=== PATIENT | male | born 1940 | race Hispanic/Latino ===

== ENCOUNTER 2018-11-12 12:07 | Inpatient (IN) | payer MEDICARE ==
[2018-11-12] MEDS ORDERED: WATER FOR INJ Sterile (PF) 10 ML ONE (19:06)
[2018-11-12] MEDS: GEODON IM SCH (19:23)
[2018-11-12] MEDS: DESYREL PO SCH (21:37)
[2018-11-13] MEDS: GEODON IM SCH (03:12)
--- NOTE | 2018-11-13 08:06 | History and Physical Report ---
GP History & Physical - History of Present Illness Date of admission: 11/12/18 Date of Examination: 11/13/18 Reason for Admission: Danger to others, Unable to care for self Chief Complaint: Aggressive behavior History of Present Illness: The patient is a 78yo male with history of Dementia, CVD and MD. He resides at an [facility], referred from [facility] with history of being aggressive towards staffs - physically and verbally. He received Haldol at the ED due to his aggressive behavior. Patient seen this morning in the dayroom, eating his breakfast. He does not know why he is here. Reports feeling good, denies SI/HI/AVH Past History Past Medical History: other (hypertension, hyperlipidemia, coronary artery disease, A. fib, dementia) Past Surgical History: Other (unknown) Social history: other (unknown) Family history: other (unknown) Medications and Allergies Allergies Allergy/AdvReac Type Severity Reaction Status Date / Time amlodipine Allergy Unknown Unknown Verified 11/12/18 15:59 Home Medications Medication Instructions Recorded Confirmed Last Taken Type Aricept 10 mg PO DAILY 11/13/18 11/13/18 Unknown History Atorvastatin 40 mg PO DAILY 11/13/18 11/13/18 Unknown History Calcium Carbonate 400MG CHEW 500 mg PO DAILY 11/13/18 11/13/18 Unknown History Carvedilol [Coreg] 3.125 mg PO BID 11/13/18 11/13/18 Unknown History Cholecalciferol (Vitamin D3) 2,000 unit PO DAILY 11/13/18 11/13/18 Unknown History Digoxin 0.125 mg PO Q48HR 11/13/18 11/13/18 Unknown History Eliquis 5 mg PO BID 11/13/18 11/13/18 Unknown History LORazepam 1 mg PO TID PRN 11/13/18 11/13/18 Unknown History Lexapro 5 mg PO DAILY 11/13/18 11/13/18 Unknown History Namenda 10 mg PO DAILY 11/13/18 11/13/18 Unknown History QUEtiapine [SEROquel] 25 mg PO QHS 11/13/18 11/13/18 Unknown History Ubidecarenone [Coenzyme Q10] 200 mg PO DAILY 11/13/18 11/13/18 Unknown History hydrALAZINE 25 mg PO TID 11/13/18 11/13/18 Unknown History Legal Status: Voluntary Patient Problems: Current Active Problems Dementia, Alzheimer's, with behavior disturbance (Acute) Review of Systems ROS unobtainable: due to mental status Results - Results Labs/Vitals: Last Vital Signs Temp 99.3 F 11/12/18 22:00 Pulse 89 11/12/18 22:00 Resp 18 11/12/18 22:00 BP 132/85 11/12/18 22:00 Pulse Ox 94 11/12/18 22:00 Physical Examination - Constitutional Vitals: Vital Signs Temp Pulse Resp BP Pulse Ox 99.3 F 89 18 132/85 94 11/12/18 22:00 11/12/18 22:00 11/12/18 22:00 11/12/18 22:00 11/12/18 22:00 Temperature -Last 24 Hours Temperature 99.3 F Temperature 99.3 F Temperature 98.3 F General appearance: Present: no acute distress - EENT Eyes: Present: PERRL, EOM intact ENT: hearing intact, clear oral mucosa - Neck Neck: Present: supple, normal ROM - Respiratory Respiratory effort: normal Mental Status Exam - Vital signs Last Vital Signs Temp 99.3 F 11/12/18 22:00 Pulse 89 11/12/18 22:00 Resp 18 11/12/18 22:00 BP 132/85 11/12/18 22:00 Pulse Ox 94 11/12/18 22:00 - Exam Orientation: person Affect: anxious Mood: congruent with affect Thought Process: Disorganized Perceptions: none Speech: normal rate and pattern Concentration: distractible Motor activity: normal Level of consciousness: confused Memory: Recent Impaired, Remote Impaired Interaction: uncooperative Assessment and Plan - Psychiatric problem (1) Dementia, Alzheimer's, with behavior disturbance Current Visit: Yes Status: Acute plan to address problem: Patient will be admitted for inpatient psychiatric evaluation, medication adjustment and close monitoring The patient's behavior, mood, sleep and appetite will be closely monitored. Patient will be enrolled in individual and group therapeutic sessions and encouraged to attend. Patient will be provided with a safe and structured environment. Patient's physical health needs will be addressed by the Hospitalist. Social Assessment will be completed and the Fiber Optic Assembly Worker will work with patient and family to ensure a suitable and safe disposition Medication adjustment will be made as clinically indicated Physician Certification - Certification Statement Physician Certification Statement: This is an acknowledgement statement that ROSA MERINO is a 78 year old M w ho requires inpatient psychiatric admission for treatment which could reasonably be expected to improve the patient's condition for aggression and behavioral disturbance Estimated period of time patient will need to remain in the hospital: 7 days Plan for post-hospital care: out-patient care
[2018-11-13] MEDS ORDERED: NON-FORMULARY (Lorazepam 1 MG) PO PRN (08:14)
[2018-11-13] MEDS ORDERED: LEXAPRO 5 MG PO SCH (10:00)
[2018-11-13] MEDS ORDERED: NAMENDA 10 MG PO SCH (10:00)
[2018-11-13] MEDS ORDERED: ARICEPT 10 MG PO SCH (10:00)
[2018-11-13 10:48] LABS: Basophils # (Auto) 0.1 K/mm3 (0.0-0.1); Basophils % (Auto) 0.8 % (0.0-1.8); Eosinophils # (Auto) 0.2 K/mm3 (0.0-0.4); Eosinophils % (Auto) 1.9 % (0.0-4.3); Hematocrit 41.1 % (35.5-45.6); Hemoglobin 13.6 gm/dl (11.8-15.2); Lymphocytes # (Auto) 0.8 K/mm3 (1.2-5.4); Lymphocytes % (Auto) 10.3 % (13.4-35.0); Mean Corpuscular HGB Conc 33 % (32-34); Mean Corpuscular Hemoglobin 30 pg (28-32); Mean Corpuscular Volume 90 fl (84-94); Monocytes # (Auto) 0.9 K/mm3 (0.0-0.8); Monocytes % (Auto) 11.7 % (0.0-7.3); Platelet Count 148 K/mm3 (140-440); Red Blood Count 4.58 M/mm3 (3.65-5.03); Red Cell Distribution Width 15.8 % (13.2-15.2)
[2018-11-13 10:58] LABS: Calcium 9.6 mg/dL (8.4-10.2); Chol/HDL Ratio 1.94 %
[2018-11-13] MEDS: ATIVAN PO PRN (11:06)
[2018-11-13] MEDS: ARICEPT PO SCH (11:07)
[2018-11-13] MEDS: LEXAPRO PO SCH (11:09)
[2018-11-13] MEDS: NAMENDA PO SCH (11:10)
--- NOTE | 2018-11-13 15:25 | Consultation ---
History of Present Illness - History of Present Illness 78-year-old man with multiple medical problems who was brought to the [facility] inpatient unit for management of aggressive behavior. Medicine consulted for medical management Past History Past Medical History: other (hypertension, hyperlipidemia, coronary artery disease, A. fib, dementia) Past Surgical History: Other (unknown) Social history: other (unknown) Family history: other (unknown) Medications and Allergies Allergies Allergy/AdvReac Type Severity Reaction Status Date / Time amlodipine Allergy Unknown Unknown Verified 11/12/18 15:59 Home Medications Medication Instructions Recorded Confirmed Last Taken Type Aricept 10 mg PO DAILY 11/13/18 11/13/18 Unknown History Atorvastatin 40 mg PO DAILY 11/13/18 11/13/18 Unknown History Calcium Carbonate 400MG CHEW 500 mg PO DAILY 11/13/18 11/13/18 Unknown History Carvedilol [Coreg] 3.125 mg PO BID 11/13/18 11/13/18 Unknown History Cholecalciferol (Vitamin D3) 2,000 unit PO DAILY 11/13/18 11/13/18 Unknown History Digoxin 0.125 mg PO Q48HR 11/13/18 11/13/18 Unknown History Eliquis 5 mg PO BID 11/13/18 11/13/18 Unknown History LORazepam 1 mg PO TID PRN 11/13/18 11/13/18 Unknown History Lexapro 5 mg PO DAILY 11/13/18 11/13/18 Unknown History Namenda 10 mg PO DAILY 11/13/18 11/13/18 Unknown History QUEtiapine [SEROquel] 25 mg PO QHS 11/13/18 11/13/18 Unknown History Ubidecarenone [Coenzyme Q10] 200 mg PO DAILY 11/13/18 11/13/18 Unknown History hydrALAZINE 25 mg PO TID 11/13/18 11/13/18 Unknown History Active Meds: Active Medications Carvedilol (Coreg) 3.125 mg PO BID [facility] Donepezil HCl (Aricept) 10 mg PO QDAY [facility] Last Admin: 11/13/18 11:07 Dose: 10 mg Documented by: Escitalopram Oxalate (Lexapro) 5 mg PO DAILY [facility] Last Admin: 11/13/18 11:09 Dose: 5 mg Documented by: Haloperidol Lactate (Haldol) 5 mg IM Q6H PRN PRN Reason: Agitation Lorazepam (Ativan) 1 mg PO TID PRN PRN Reason: Anxiety Last Admin: 11/13/18 11:06 Dose: 1 mg Documented by: Memantine (Namenda) 10 mg PO QDAY [facility] Last Admin: 11/13/18 11:10 Dose: 10 mg Documented by: Miscellaneous Medication (Atorvastatin) 40 mg PO DAILY [facility] Miscellaneous Medication (Calcium Carbonate 400mg Chew) 500 mg PO DAILY [facility] Miscellaneous Medication (Cholecalciferol (Vitamin D3)) 2,000 unit PO DAILY [facility] Miscellaneous Medication (Digoxin) 0.125 mg PO Q48HR [facility] Miscellaneous Medication (Eliquis) 5 mg PO BID [facility] Miscellaneous Medication (Hydralazine) 25 mg PO TID [facility] Quetiapine Fumarate (Seroquel) 25 mg PO QHS [facility] Trazodone HCl (Desyrel) 50 mg PO QHS [facility] Last Admin: 11/12/18 21:37 Dose: 50 mg Documented by: Review of Systems ROS unobtainable: due to mental status Exam - Constitutional Vitals: Temp Pulse Resp BP Pulse Ox 99.3 F 89 18 132/85 94 11/12/18 22:00 11/12/18 22:00 11/12/18 22:00 11/12/18 22:00 11/12/18 22:00 General appearance: Present: no acute distress, well-nourished - EENT Eyes: Present: PERRL ENT: hearing intact, clear oral mucosa - Neck Neck: Present: supple, normal ROM - Respiratory Respiratory effort: normal Respiratory: bilateral: CTA - Cardiovascular Heart Sounds: Present: S1 & S2. Absent: rub, click - Extremities Extremities: pulses symmetrical, No edema Peripheral Pulses: within normal limits - Abdominal General gastrointestinal: Present: soft, non-tender, non-distended, normal bowel sounds Male genitourinary: Present: normal - Integumentary Integumentary: Present: clear, warm, dry - Musculoskeletal Musculoskeletal: gait normal, strength equal bilaterally - Psychiatric Psychiatric: no appropriate mood/affect, no intact judgment & insight - Neurologic Neurologic: CNII-XII intact, moves all extremities Results - Labs CBC & Chem 7: 11/13/18 10:18 11/13/18 10:18 Labs: Abnormal lab results 11/13/18 11/13/18 Range/Units 10:18 10:18 RDW 15.8 H (13.2-15.2) % Lymph % (Auto) 10.3 L (13.4-35.0) % [place] % (Auto) 11.7 H (0.0-7.3) % Lymph # 0.8 L (1.2-5.4) K/mm3 [place] # 0.9 H (0.0-0.8) K/mm3 Seg Neutrophils % 75.3 H (40.0-70.0) % BUN 23 H (9-20) mg/dL Creatinine 1.8 H (0.8-1.5) mg/dL Glucose 104 H (75-100) mg/dL HDL Cholesterol 76 H (40-59) mg/dL Assessment and Plan 78-year-old man history of dementia who was referred to psychiatric inpatient unit for aggressive behavior while at [facility]. Medicine consult placed for medical management Hypertensive urgency Optimize blood pressure medications History of atrial fibrillation Continue carvedilol and digoxin, check dig level, continue the liquids for stroke prophylaxis, check dig level Acute kidney injury versus chronic kidney injury Recommend obtaining records from [facility]' to really see if this is his baseline renal function -Would recommend IV fluids versus increased by mouth intake of fluids Hyperlipidemia Check lipid panel, continue statin
[2018-11-13] MEDS ORDERED: NACL 0.45% 1000 ML 1,000 ML IV SCH (16:00)
[2018-11-13] MEDS: VITAMIN D3 PO SCH (18:42)
[2018-11-13] MEDS ORDERED: NON-FORMULARY (Hydralazine 25 MG) PO SCH (20:00)
[2018-11-13] MEDS: DESYREL PO SCH (20:59)
[2018-11-13] MEDS: COREG PO SCH (20:59)
[2018-11-13] MEDS: ELIQUIS PO SCH (20:59)
[2018-11-13] MEDS ORDERED: NON-FORMULARY (Eliquis 5 MG) PO SCH (22:00)
[2018-11-13] MEDS ORDERED: ELIQUIS PO SCH (22:00)
[2018-11-13] MEDS: APRESOLINE PO SCH (22:36)
[2018-11-14] MEDS: ATIVAN PO PRN (01:10)
[2018-11-14] MEDS ORDERED: CALCIUM CARBONATE PO SCH (10:00)
[2018-11-14] MEDS: ELIQUIS PO SCH ×2 (11:32→23:03)
[2018-11-14] MEDS: VITAMIN D3 PO SCH (11:32)
[2018-11-14] MEDS: TUMS PO SCH ×2 (11:32→12:13)
[2018-11-14] MEDS: LEXAPRO PO SCH (11:33)
[2018-11-14] MEDS: NAMENDA PO SCH (11:33)
[2018-11-14] MEDS: COREG PO SCH ×2 (11:34→22:57)
[2018-11-14] MEDS: ARICEPT PO SCH (11:35)
[2018-11-14] MEDS: APRESOLINE PO SCH ×3 (11:36→23:03)
[2018-11-14] MEDS: DESYREL PO SCH (23:03)
[2018-11-15] MEDS: APRESOLINE PO SCH ×3 (08:14→20:03)
[2018-11-15] MEDS ORDERED: DIGOXIN 0.125 MG PO SCH (10:00)
[2018-11-15] MEDS: LANOXIN PO SCH (13:08)
[2018-11-15] MEDS: NAMENDA PO SCH (13:10)
[2018-11-15] MEDS: TUMS PO SCH (13:10)
[2018-11-15] MEDS: COREG PO SCH ×2 (13:12→21:48)
[2018-11-15] MEDS: ELIQUIS PO SCH ×2 (13:12→21:49)
[2018-11-15] MEDS: ARICEPT PO SCH (13:14)
[2018-11-15] MEDS: LEXAPRO PO SCH (13:14)
[2018-11-15] MEDS: VITAMIN D3 PO SCH (13:15)
--- NOTE | 2018-11-15 20:59 | Progress Note ---
Subjective Date of service: 11/14/18 Principal diagnosis: Dementia with behavioral disturbance Subjective Comment: Per Nursing staff, pt is A&o to person, confused and combative w/ ADL's this morning. pt refused his breakfast and to have his v/s taken. pt resistant w/ rediretion attempts to maintain his safety- during attempts to redirect pt, pt becomes verbally aggressive toward staff, calling them "bitches and worthless black bitches". Objective - Criteria for Continued Treatment Criteria for Continued Treatment: Improving Level of Functioning, Stablizing Level of Functioning, Improving Emotional/Socia - Mental Status Mental Status: Oriented x 1 Person only - Objective Observation Participation Level: Minimal Assessment and Plan - Patient Problems (1) Dementia, Alzheimer's, with behavior disturbance Current Visit: Yes Status: Acute Plan to address problem: Patient will be admitted for inpatient psychiatric evaluation, medication adjustment and close monitoring The patient's behavior, mood, sleep and appetite will be closely monitored. Patient will be enrolled in individual and group therapeutic sessions and encouraged to attend. Patient will be provided with a safe and structured environment. Patient's physical health needs will be addressed by the Hospitalist. Social Assessment will be completed and the Supervisor Wet End will work with patient and family to ensure a suitable and safe disposition Medication adjustment will be made as clinically indicated
--- NOTE | 2018-11-15 21:03 | Progress Note ---
Subjective Date of service: 11/15/18 Principal diagnosis: Dementia with behavioral disturbance Subjective Comment: Patient is confused, disorganized and unsteady but wants to pace. Has a high fall risk. He is being monitored very closely Objective - Criteria for Continued Treatment Criteria for Continued Treatment: Improving Level of Functioning, Stablizing Level of Functioning, Improving Emotional/Socia - Mental Status Mental Status: Oriented x 1 Person only - Objective Observation Participation Level: Minimal Assessment and Plan - Patient Problems (1) Dementia, Alzheimer's, with behavior disturbance Current Visit: Yes Status: Acute Plan to address problem: Patient will be admitted for inpatient psychiatric evaluation, medication adjustment and close monitoring The patient's behavior, mood, sleep and appetite will be closely monitored. Patient will be enrolled in individual and group therapeutic sessions and encouraged to attend. Patient will be provided with a safe and structured environment. Patient's physical health needs will be addressed by the Hospitalist. Social Assessment will be completed and the Addiction Psychiatrist will work with patient and family to ensure a suitable and safe disposition Medication adjustment will be made as clinically indicated
[2018-11-15] MEDS: DESYREL PO SCH (21:48)
[2018-11-16] MEDS: APRESOLINE PO SCH ×3 (07:00→20:04)
--- NOTE | 2018-11-16 08:42 | Progress Note ---
Subjective Date of service: 11/16/18 Principal diagnosis: Dementia with behavioral disturbance Subjective Comment: Patient is pleasantly confused. He is compliant with medications and cooperative with cares. No aggressive behavior. He eats and sleeps well. Will discharge in am if he continues to do well. Objective - Criteria for Continued Treatment Criteria for Continued Treatment: Stablizing Level of Functioning - Mental Status Mental Status: Oriented x [address] & [address] - Objective Observation Participation Level: Moderate Assessment and Plan - Patient Problems (1) Dementia, Alzheimer's, with behavior disturbance Current Visit: Yes Status: Acute Plan to address problem: Patient will be admitted for inpatient psychiatric evaluation, medication adjustment and close monitoring The patient's behavior, mood, sleep and appetite will be closely monitored. Patient will be enrolled in individual and group therapeutic sessions and encouraged to attend. Patient will be provided with a safe and structured environment. Patient's physical health needs will be addressed by the Hospitalist. Social Assessment will be completed and the Chain Saw Mechanic will work with patient and family to ensure a suitable and safe disposition Medication adjustment will be made as clinically indicated
[2018-11-16] MEDS: VITAMIN D3 PO SCH (10:01)
[2018-11-16] MEDS: TUMS PO SCH (10:02)
[2018-11-16] MEDS: LEXAPRO PO SCH (10:02)
[2018-11-16] MEDS: ARICEPT PO SCH (10:03)
[2018-11-16] MEDS: ELIQUIS PO SCH ×2 (10:03→22:04)
[2018-11-16] MEDS: COREG PO SCH ×2 (10:04→22:04)
[2018-11-16] MEDS: NAMENDA PO SCH (10:06)
[2018-11-16] MEDS: DESYREL PO SCH (22:04)
--- NOTE | 2018-11-17 08:35 | Progress Note ---
Subjective Date of service: 11/17/18 Principal diagnosis: Dementia with behavioral disturbance Subjective Comment: Patient is pleasantly confused. He is compliant with medications and cooperative with cares. Verbally abusive towards staff and defiant at times. He eats and sleeps well. Objective - Criteria for Continued Treatment Criteria for Continued Treatment: Improving Level of Functioning, Stablizing Level of Functioning, Improving Emotional/Socia - Mental Status Mental Status: Oriented x 1 Person only - Objective Observation Participation Level: Moderate Assessment and Plan - Patient Problems (1) Dementia, Alzheimer's, with behavior disturbance Current Visit: Yes Status: Acute Plan to address problem: Patient will be admitted for inpatient psychiatric evaluation, medication adjustment and close monitoring The patient's behavior, mood, sleep and appetite will be closely monitored. Patient will be enrolled in individual and group therapeutic sessions and encouraged to attend. Patient will be provided with a safe and structured environment. Patient's physical health needs will be addressed by the Hospitalist. Social Assessment will be completed and the Prepared Foods Production Team Member will work with patient and family to ensure a suitable and safe disposition Medication adjustment will be made as clinically indicated
[2018-11-17] MEDS: VITAMIN D3 PO SCH (11:09)
[2018-11-17] MEDS: ELIQUIS PO SCH ×2 (11:10→21:38)
[2018-11-17] MEDS: ARICEPT PO SCH (11:10)
[2018-11-17] MEDS: COREG PO SCH ×2 (11:11→21:37)
[2018-11-17] MEDS: NAMENDA PO SCH (11:12)
[2018-11-17] MEDS: APRESOLINE PO SCH ×3 (11:20→19:42)
[2018-11-17] MEDS: LANOXIN PO SCH (11:21)
[2018-11-17] MEDS: LEXAPRO PO SCH (11:22)
[2018-11-17] MEDS: TUMS PO SCH (13:40)
[2018-11-17] MEDS: DESYREL PO SCH (21:38)
[2018-11-18] MEDS: APRESOLINE PO SCH ×3 (10:40→21:14)
[2018-11-18] MEDS: ARICEPT PO SCH (11:00)
[2018-11-18] MEDS: NAMENDA PO SCH (11:00)
[2018-11-18] MEDS: VITAMIN D3 PO SCH (11:00)
[2018-11-18] MEDS: ELIQUIS PO SCH ×2 (11:00→21:15)
[2018-11-18] MEDS: COREG PO SCH ×2 (11:00→21:14)
[2018-11-18] MEDS: TUMS PO SCH (11:00)
[2018-11-18] MEDS: HALDOL IM PRN (12:21)
--- NOTE | 2018-11-18 17:02 | Progress Note ---
Subjective Date of service: 11/18/18 Principal diagnosis: Dementia with behavioral disturbance Subjective Comment: No changes. Patient is pleasantly confused. He is compliant with medications and cooperative with cares. Verbally abusive towards staff and defiant at times. He eats and sleeps well. Objective - Criteria for Continued Treatment Criteria for Continued Treatment: Improving Level of Functioning, Stablizing Level of Functioning, Improving Emotional/Socia - Mental Status Mental Status: Oriented x 1 Person only - Objective Observation Participation Level: Minimal Assessment and Plan - Patient Problems (1) Dementia, Alzheimer's, with behavior disturbance Current Visit: Yes Status: Acute Plan to address problem: Patient will be admitted for inpatient psychiatric evaluation, medication adjustment and close monitoring The patient's behavior, mood, sleep and appetite will be closely monitored. Patient will be enrolled in individual and group therapeutic sessions and encouraged to attend. Patient will be provided with a safe and structured environment. Patient's physical health needs will be addressed by the Hospitalist. Social Assessment will be completed and the Psychological Science Professor will work with patient and family to ensure a suitable and safe disposition Medication adjustment will be made as clinically indicated
[2018-11-18] MEDS: LEXAPRO PO SCH (17:49)
[2018-11-18] MEDS: DESYREL PO SCH (21:15)
--- NOTE | 2018-11-19 09:24 | Progress Note ---
Subjective Date of service: 11/19/18 Principal diagnosis: Dementia with behavioral disturbance Subjective Comment: Patient appears to be near or close to his new baseline. He is confused and agitated at times. Difficult to redirect at times but mostly compliant with medications and cooperative with cares. He eats and sleeps well. Objective - Criteria for Continued Treatment Criteria for Continued Treatment: Improving Level of Functioning, Stablizing Level of Functioning, Improving Emotional/Socia - Mental Status Mental Status: Oriented x 1 Person only - Objective Observation Participation Level: Minimal Assessment and Plan - Patient Problems (1) Dementia, Alzheimer's, with behavior disturbance Current Visit: Yes Status: Acute Plan to address problem: Patient will be admitted for inpatient psychiatric evaluation, medication adjustment and close monitoring The patient's behavior, mood, sleep and appetite will be closely monitored. Patient will be enrolled in individual and group therapeutic sessions and encouraged to attend. Patient will be provided with a safe and structured environment. Patient's physical health needs will be addressed by the Hospitalist. Social Assessment will be completed and the Coroner will work with patient and family to ensure a suitable and safe disposition Medication adjustment will be made as clinically indicated
[2018-11-19] MEDS: ARICEPT PO SCH ×2 (09:49→12:23)
[2018-11-19] MEDS: NAMENDA PO SCH ×2 (09:49→12:22)
[2018-11-19] MEDS: TUMS PO SCH ×2 (09:49→12:21)
[2018-11-19] MEDS: ELIQUIS PO SCH ×3 (09:50→21:36)
[2018-11-19] MEDS: COREG PO SCH ×3 (09:50→21:37)
[2018-11-19] MEDS: VITAMIN D3 PO SCH ×2 (09:51→12:21)
[2018-11-19] MEDS: LANOXIN PO SCH ×2 (09:54→12:22)
[2018-11-19] MEDS: LEXAPRO PO SCH ×2 (09:54→12:22)
[2018-11-19] MEDS: APRESOLINE PO SCH ×4 (09:58→21:36)
[2018-11-19] MEDS: HALDOL IM PRN (11:55)
[2018-11-19] MEDS: ATIVAN PO PRN (21:36)
[2018-11-19] MEDS: DESYREL PO SCH (21:37)
[2018-11-20] MEDS: ELIQUIS PO SCH ×2 (10:01→21:16)
[2018-11-20] MEDS: LEXAPRO PO SCH (10:01)
[2018-11-20] MEDS: COREG PO SCH ×2 (10:01→21:18)
[2018-11-20] MEDS: TUMS PO SCH (10:02)
[2018-11-20] MEDS: APRESOLINE PO SCH ×3 (10:02→20:00)
[2018-11-20] MEDS: NAMENDA PO SCH (10:03)
[2018-11-20] MEDS: ARICEPT PO SCH (10:03)
[2018-11-20] MEDS: VITAMIN D3 PO SCH (10:03)
[2018-11-20] MEDS: ATIVAN PO PRN (21:16)
[2018-11-20] MEDS: DESYREL PO SCH (21:16)
--- NOTE | 2018-11-21 08:14 | XRay Report ---
CHEST 1 VIEW 11/21/2018 7:59 AM INDICATION / CLINICAL INFORMATION: Evaluate for tube the prior to facility placement. COMPARISON: None available. FINDINGS: SUPPORT DEVICES: A single lead left pacemaker is in good position. HEART / MEDIASTINUM: Normal cardiac size and mediastinal contours with a prosthetic aortic valve but appears unremarkable. LUNGS / PLEURA: No significant pulmonary or pleural abnormality. No pneumothorax. ADDITIONAL FINDINGS: No significant additional findings. IMPRESSION: No radiographic evidence of tuberculosis or other acute findings. Signer Name: Corbin Ng MD Signed: 11/21/2018 8:10 AM Workstation Name: [id number]
--- NOTE | 2018-11-21 10:00 | Progress Note ---
Subjective Date of service: 11/21/18 Principal diagnosis: Dementia with behavioral disturbance Subjective Comment: Patient is confused and agitated at times but redirectable. He is mostly compliant with medications and cooperative with cares. He eats and sleeps well. No medication side effect observed or reported. Objective - Criteria for Continued Treatment Criteria for Continued Treatment: Improving Level of Functioning, Stablizing Level of Functioning, Improving Emotional/Socia - Mental Status Mental Status: Oriented x 1 Person only - Objective Observation Participation Level: Moderate Assessment and Plan - Patient Problems (1) Dementia, Alzheimer's, with behavior disturbance Current Visit: Yes Status: Acute Plan to address problem: Patient will be admitted for inpatient psychiatric evaluation, medication adjustment and close monitoring The patient's behavior, mood, sleep and appetite will be closely monitored. Patient will be enrolled in individual and group therapeutic sessions and encouraged to attend. Patient will be provided with a safe and structured environment. Patient's physical health needs will be addressed by the Hospitalist. Social Assessment will be completed and the Lumber Estimator will work with patient and family to ensure a suitable and safe disposition Medication adjustment will be made as clinically indicated
[2018-11-21] MEDS: LEXAPRO PO SCH (10:24)
[2018-11-21] MEDS: VITAMIN D3 PO SCH (10:24)
[2018-11-21] MEDS: TUMS PO SCH (10:25)
[2018-11-21] MEDS: LANOXIN PO SCH (10:25)
[2018-11-21] MEDS: ARICEPT PO SCH (10:25)
[2018-11-21] MEDS: NAMENDA PO SCH (10:25)
[2018-11-21] MEDS: COREG PO SCH ×2 (10:26→21:03)
[2018-11-21] MEDS: APRESOLINE PO SCH ×3 (10:26→20:55)
[2018-11-21] MEDS: ELIQUIS PO SCH ×2 (10:26→21:00)
[2018-11-21] MEDS: DESYREL PO SCH (21:01)
[2018-11-21] MEDS: ATIVAN PO PRN (21:01)
--- NOTE | 2018-11-22 09:22 | Discharge Summary ---
Providers - Providers Date of Admission: 11/12/18 13:58 Date of discharge: 11/23/18 Attending physician: JAYY SHIRLEY MD Primary care physician: AUTO EMISSIONS TECHNICIAN Hospitalization Reason for admission: aggressive towards staffs - physically and verbally. Condition: Good Hospital course: The patient was provided inpatient psychiatric treatment with safe and supportive environment, group therapy, individual counseling, psychiatric medication, medication adjustment, adverse effect monitor, medical evaluation, medical treatment, social service assessment, family/social support meeting, placement assessment and psycho-education. The patients mood, anxiety, thoughts, stress management skill, cognition, impulse/anger control, motivation, understanding of disease, compliance to treatment and appreciation on family/social support are improved and stabilized. At the time of discharge, the patient had no suicidal ideas, no homicidal ideas, no aggressive thoughts, no endangering behavior and no debilitating adverse effects. The patient's family agreed on the treatment plan, understood the risk, benefit, alternative treatment, potential consequence of no treatment, and gave informed consent. The patient was advised to be compliant with medications, not to use drugs and not to drink alcohol. The patient understands that if suicidal ideas, homicidal ideas, or any endangering thoughts arise, the patient should immediately seek for emergent assistance including but not limited to crisis hot line and emergency room. Follow up with out-patient Psychiatrist and PCP within 14 - 21 days of discharge. Disposition: [id number] Time spent for discharge: 36 mins Allergies/Adverse Reactions: Allergies amlodipine Allergy (Unknown, Verified 11/12/18 15:59) Unknown Vital Signs: Last Vital Signs Temp 98.3 F 11/21/18 10:00 Pulse 59 L 11/21/18 13:13 Resp 18 11/21/18 10:00 BP 125/83 11/21/18 13:13 Pulse Ox 94 11/21/18 10:00 Last Lab: Laboratory Last Values WBC 8.0 K/mm3 (4.5-11.0) 11/13/18 10:18 RBC 4.58 M/mm3 (3.65-5.03) 11/13/18 10:18 Hgb 13.6 gm/dl (11.8-15.2) 11/13/18 10:18 Hct 41.1 % (35.5-45.6) 11/13/18 10:18 MCV 90 fl (84-94) 11/13/18 10:18 MCH 30 pg (28-32) 11/13/18 10:18 MCHC 33 % (32-34) 11/13/18 10:18 RDW 15.8 % (13.2-15.2) H 11/13/18 10:18 Plt Count 148 K/mm3 (140-440) 11/13/18 10:18 Lymph % (Auto) 10.3 % (13.4-35.0) L 11/13/18 10:18 [place] % (Auto) 11.7 % (0.0-7.3) H 11/13/18 10:18 Eos % (Auto) 1.9 % (0.0-4.3) 11/13/18 10:18 Baso % (Auto) 0.8 % (0.0-1.8) 11/13/18 10:18 Lymph # 0.8 K/mm3 (1.2-5.4) L 11/13/18 10:18 [place] # 0.9 K/mm3 (0.0-0.8) H 11/13/18 10:18 Eos # 0.2 K/mm3 (0.0-0.4) 11/13/18 10:18 Baso # 0.1 K/mm3 (0.0-0.1) 11/13/18 10:18 Seg Neutrophils % 75.3 % (40.0-70.0) H 11/13/18 10:18 Seg Neutrophils # 6.0 K/mm3 (1.8-7.7) 11/13/18 10:18 Sodium 143 mmol/L (137-145) 11/13/18 10:18 Potassium 4.6 mmol/L (3.6-5.0) 11/13/18 10:18 Chloride 103.9 mmol/L (98-107) 11/13/18 10:18 Carbon Dioxide 26 mmol/L (22-30) 11/13/18 10:18 18 mmol/L 11/13/18 10:18 BUN 23 mg/dL (9-20) H 11/13/18 10:18 1.8 mg/dL (0.8-1.5) H 11/13/18 10:18 Estimated GFR 37 ml/min 11/13/18 10:18 13 % 11/13/18 10:18 Glucose 104 mg/dL (75-100) H 11/13/18 10:18 5.5 % (4-6) 11/13/18 10:18 Calcium 9.6 mg/dL (8.4-10.2) 11/13/18 10:18 0.80 mg/dL (0.1-1.2) 11/13/18 10:18 AST 18 units/L (5-40) 11/13/18 10:18 ALT 14 units/L (7-56) 11/13/18 10:18 85 units/L (35-129) 11/13/18 10:18 7.5 g/dL (6.3-8.2) 11/13/18 10:18 4.0 g/dL (3.9-5) 11/13/18 10:18 1.1 % 11/13/18 10:18 Triglycerides 74 mg/dL (2-149) 11/13/18 10:18 Cholesterol 148 mg/dL (50-199) 11/13/18 10:18 71 mg/dL (50-130) 11/13/18 10:18 76 mg/dL (40-59) H 11/13/18 10:18 1.94 % 11/13/18 10:18 - Discharge Diagnoses (1) Dementia, Alzheimer's, with behavior disturbance Status: Acute Core Measure Documentation - Palliative Care Palliative Care/ Comfort Measures: Not Applicable - Core Measures Any of the following diagnoses?: none Exam - Constitutional Vitals: Temp Pulse Resp BP Pulse Ox 98.3 F 59 L 18 125/83 94 11/21/18 10:00 11/21/18 13:13 11/21/18 10:00 11/21/18 13:13 11/21/18 10:00 General appearance: Present: no acute distress, well-nourished - EENT Eyes: Present: PERRL, EOM intact ENT: hearing intact, clear oral mucosa - Neck Neck: Present: supple, normal ROM - Respiratory Respiratory effort: normal Plan Activity: fall precautions Weight Bearing Status: Weight Bear as Tolerated Diet: regular Follow up with: PRIMARY CARE,MD [Primary Care Provider] - 7 Days Prescriptions: traZODone [Desyrel] 50 mg PO QHS PRN #30 tablet PRN Reason: Insomnia QUEtiapine [SEROquel] 25 mg PO QHS #30 tablet Aricept 10 mg PO DAILY #30 Atorvastatin 40 mg PO DAILY #30 Cholecalciferol (Vitamin D3) 2,000 unit PO DAILY #30 Carvedilol [Coreg] 3.125 mg PO BID #60 tablet hydrALAZINE 25 mg PO TID #90 Lexapro 5 mg PO DAILY #30 Namenda 10 mg PO DAILY #30 Calcium Carbonate [Tums 500MG CHEW] 500 mg PO QDAY #30 tablet
[2018-11-22] MEDS: COREG PO SCH ×2 (10:53→21:22)
[2018-11-22] MEDS: LEXAPRO PO SCH (10:53)
[2018-11-22] MEDS: TUMS PO SCH (10:53)
[2018-11-22] MEDS: VITAMIN D3 PO SCH (10:53)
[2018-11-22] MEDS: ELIQUIS PO SCH ×2 (10:53→21:22)
[2018-11-22] MEDS: NAMENDA PO SCH (10:54)
[2018-11-22] MEDS: ARICEPT PO SCH (10:55)
[2018-11-22] MEDS: APRESOLINE PO SCH ×3 (10:55→19:50)
[2018-11-22] MEDS: DESYREL PO SCH (21:22)
[2018-11-23] MEDS: APRESOLINE PO SCH (08:47)
[2018-11-23 08:48] VITALS: BP 151/89
[2018-11-23] MEDS: VITAMIN D3 PO SCH (10:09)
[2018-11-23] MEDS: NAMENDA PO SCH (10:10)
[2018-11-23] MEDS: LANOXIN PO SCH (10:10)
[2018-11-23] MEDS: COREG PO SCH (10:10)
[2018-11-23] MEDS: ELIQUIS PO SCH (10:10)
[2018-11-23] MEDS: ARICEPT PO SCH (10:11)
[2018-11-23] MEDS: LEXAPRO PO SCH (10:11)
[2018-11-23] MEDS: TUMS PO SCH (10:11)
--- NOTE | 2018-11-23 10:35 | Progress Note ---
Subjective Date of service: 11/22/18 Principal diagnosis: Dementia with behavioral disturbance Subjective Comment: Patient is confused and agitated at times but redirectable. He is mostly compliant with medications and cooperative with cares. He eats and sleeps well. No medication side effect observed or reported. Objective - Criteria for Continued Treatment Criteria for Continued Treatment: Improving Level of Functioning, Stablizing Level of Functioning, Improving Emotional/Socia - Mental Status Mental Status: Oriented x 1 Person only - Objective Observation Participation Level: Minimal Assessment and Plan - Patient Problems (1) Dementia, Alzheimer's, with behavior disturbance Current Visit: Yes Status: Acute Plan to address problem: Patient will be admitted for inpatient psychiatric evaluation, medication adjustment and close monitoring The patient's behavior, mood, sleep and appetite will be closely monitored. Patient will be enrolled in individual and group therapeutic sessions and encouraged to attend. Patient will be provided with a safe and structured environment. Patient's physical health needs will be addressed by the Hospitalist. Social Assessment will be completed and the Watch And Clock Repair Clerk will work with patient and family to ensure a suitable and safe disposition Medication adjustment will be made as clinically indicated
== END 2018-11-23 13:50 | DRG 57 ==
LOC: 3A 12:07 → UNDOADMIN 12:07 → 5A 13:58
PROVIDERS: ADMIT Psychiatry & Neurology Psychiatry; ATTEND Psychiatry & Neurology Psychiatry
DX: G30.9 Alzheimer's disease, unspecified (principal); F02.81 Dementia in other diseases classified elsewhere, unspecified severity, with behavioral disturbance; N17.9 Acute kidney failure, unspecified; I16.0 Hypertensive urgency; E78.5 Hyperlipidemia, unspecified; I48.91 Unspecified atrial fibrillation; I25.10 Atherosclerotic heart disease of native coronary artery without angina pectoris; I25.2 Old myocardial infarction; Z88.8 Allergy status to other drugs, medicaments and biological substances; Z79.899 Other long term (current) drug therapy; N18.9 Chronic kidney disease, unspecified; I13.10 Hypertensive heart and chronic kidney disease without heart failure, with stage 1 through stage 4 chronic kidney disease, or unspecified chronic kidney disease
CPT/HCPCS: 36415; 71045; 80053; 80061; 83036; 85025; G0378; A9270-GY; J1630; J3246; J3486